=== PATIENT | female | born 1985 | race Caucasian/White ===

== ENCOUNTER 2021-04-19 10:39 | Outpatient (CLI) | payer OTHER ==
[~2021-04-19 10:39] MED LIST: CODE1TAB37 PO
== END 2021-04-19 10:47 | disposition home or self-care (01) ==
LOC: SONOGRAMA 10:39
PROVIDERS: ATTEND Pathology Anatomic Pathology & Clinical Pathology
DX: E04.1 Nontoxic single thyroid nodule (principal)